=== PATIENT | male | born 2000 | race Hispanic/Latino ===

== ENCOUNTER 2020-07-24 19:57 | Emergency (ER) | payer OTHER, SELFPAY ==
[~2020-07-24] VITALS: Ht 177.8 cm; Wt 105.9 kg
[2020-07-24] MEDS ORDERED: BOOSTRIX/ADACEL VACCINE (DIPHTH/PERTUSS/ACELL/TETANUS) 0.5ML SYR IM ONE (20:30)
[2020-07-24] MEDS ORDERED: CEPH500T PO (21:49)
[2020-07-24 21:57] VITALS: BP 123/71
== END 2020-07-24 22:01 | disposition home or self-care (01) ==
LOC: M ED 19:57
DX: S61.202A Unspecified open wound of right middle finger without damage to nail, initial encounter (principal); W27.4XXA Contact with kitchen utensil, initial encounter; Y92.9 Unspecified place or not applicable; Y93.9 Activity, unspecified; Y99.0 Civilian activity done for income or pay